=== PATIENT | female | born 1965 ===

== ENCOUNTER 2018-05-29 11:08 | Emergency (ER) | payer MEDICAID ==
[2018-05-29 11:10] VITALS: BMI 23.9
[2018-05-29 11:14] VITALS: BP 113/73; PULSE 77; RESP 20; O2SAT 99
[2018-05-29 11:49] VITALS: TEMP 97.4
--- NOTE | 2018-05-29 11:52 | ED PDOC ---
HPI: Female Pain Time Seen by Provider: 05/29/18 11:33 Chief Complaint (Nursing): Abdominal Pain Chief Complaint (Provider): Suprapubic pain History Per: Patient History/Exam Limitations: no limitations Onset/Duration Of Symptoms: Days (1.5 weeks) Current Symptoms Are (Timing): Still Present Additional Complaint(s): Pt. was with dysuria, and back pain for 1.5 weeks. Seen in ER per notes and pcp. States she was dx with uti and got 3 rounds of shots of antibiotics. Still has symptoms. Pt. has no nausea, vomit, diarrhea, weakness, headaches, dizziness. No chest pain, dyspnea. No fever. No numbness, tingles. No injury. Unsure of what meds she got. Past Medical History Vital Signs: Last Vital Signs Temp 97.4 F L 05/29/18 11:49 Pulse 77 05/29/18 11:10 Resp 20 05/29/18 11:10 BP 113/73 05/29/18 11:10 Pulse Ox 99 05/29/18 11:10 - Medical History PMH: Anemia, Depression (NO MED), Gastritis, Hypercholesterolemia (NO MED), Kidney Stones, Migraine (NO MED) - Surgical History Surgical History: Endoscopy (18 mos. ago), Tonsillectomy - Family History Family History: States: Unknown Family Hx - Immunization History Hx Tetanus Toxoid Vaccination: No Hx Influenza Vaccination: No Hx Pneumococcal Vaccination: No - Home Medications Home Medications: Ambulatory Orders Medication Instructions Recorded Nitrofurantoin Macrocrystals 100 mg PO BID #10 cap 05/18/18 [Macrobid] Acetaminophen [Pain Reliever] 975 mg PO TID PRN 5 Days tablet 05/29/18 Nitrofurantoin Macrocrystals 100 mg PO BID #10 cap 05/29/18 [Macrobid] Phenazopyridine HCl [Pyridium] 100 mg PO BID PRN 5 Days tab 05/29/18 - Allergies Allergies/Adverse Reactions: Allergies Allergy/AdvReac Type Severity Reaction Status Date / Time aspirin AdvReac NAUSEA Verified 05/29/18 11:23 meperidine HCl [From Demerol] AdvReac FATIGUE Verified 05/29/18 11:23 novaine AdvReac FATIGUE Uncoded 05/29/18 11:23 Review of Systems ROS Statement: Except As Marked, All Systems Reviewed And Found Negative Gastrointestinal: Positive for: Abdominal Pain (suprapubic) Genitourinary Female: Positive for: Dysuria Musculoskeletal: Positive for: Back Pain Physical Exam - Reviewed Nursing Documentation Reviewed: Yes Vital Signs Reviewed: Yes - Physical Exam Appears: Positive for: Non-toxic, No Acute Distress Head Exam: Positive for: ATRAUMATIC, NORMAL INSPECTION, NORMOCEPHALIC Skin: Positive for: Normal Color, Warm, DRY Eye Exam: Positive for: EOMI, Normal appearance, PERRL ENT: Positive for: Normal ENT Inspection Neck: Positive for: Normal, Painless ROM Cardiovascular/Chest: Positive for: Regular Rate, Rhythm Respiratory: Positive for: CNT, Normal Breath Sounds Gastrointestinal/Abdominal: Positive for: Soft, Tenderness (suprapubic; no left or right lower quad tenderness) Back: Positive for: Normal Inspection Extremity: Positive for: Normal ROM Neurologic/Psych: Positive for: Alert, Oriented - ECG O2 Sat by Pulse Oximetry: 99 - Progress ED Course And Treament: 1152: Reviewed pt. records. 05/18/18 er visit shows no appendix or ct findings. Tx with antibiotics (macrobid). Pt. urine cx sensitive to macrobid. If she got injections at pcp office then likely rocephin. Will try macrobid again and send cx. No other oral antibiotics on sensitivities. Disposition - Clinical Impression Clinical Impression: UTI (urinary tract infection) - Patient ED Disposition Is Patient to be Admitted: No Counseled Patient/Family Regarding: Studies Performed, Diagnosis, Need For Followup, Rx Given - Disposition Referrals: Priyanka Crow MD [Staff Provider] - 05/30/18 Disposition: Routine/Home Disposition Time: 11:15 Condition: STABLE Additional Instructions: Return if not better in 3 days. See your doctor in 3 days without fail. Prescriptions: Acetaminophen [Pain Reliever] 975 mg PO TID PRN 5 Days tablet PRN Reason: Pain, Mild (1-3) Nitrofurantoin Macrocrystals [Macrobid] 100 mg PO BID #10 cap Phenazopyridine HCl [Pyridium] 100 mg PO BID PRN 5 Days tab PRN Reason: Bladder Spasm Instructions: Urinary Tract Infection, Adult (DC) Forms: [employer] (Tanzanian) Print Language: GUYANESE
[2018-05-29 12:25] LABS: SQUAMOUS EPITHIAL 6 /hpf (0-5); URINE AMORPHOUS SEDIMENT RARE /ul (<OCC); URINE BACTERIA RARE (<OCC); URINE BILIRUBIN NEGATIVE (NEGATIVE); URINE BLOOD NEGATIVE (NEGATIVE); URINE CLARITY SLIGHTY-CLOUDY (Clear); URINE COLOR YELLOW (YELLOW); URINE GLUCOSE (UA) NEG (NEGATIVE); URINE LEUKOCYTE ESTERASE MOD Leu/uL (Negative); URINE PROTEIN NEGATIVE (NEGATIVE); URINE UROBILINOGEN 0.2-1.0 mg/dL (0.2-1.0)
== END 2018-05-29 12:30 | disposition home or self-care (01) ==
LOC: H.ER 11:08
DX: N39.0 Urinary tract infection, site not specified (principal)